=== PATIENT | male | born 1980 ===

== ENCOUNTER 2017-12-21 18:15 | Emergency (ER) | payer OTHER ==
[~2017-12-21] VITALS: Ht 172.7 cm; Wt 1098.1 kg
[~2017-12-21 18:15] MED LIST: AMOXICILLIN500 MG PO; BENADRYL50 MG PO; IMODIUM A-D2 MG PO; MEDROL4 MG PO; PREVACID30 MG PO
== END 2017-12-21 22:32 | disposition home or self-care (01) ==
LOC: ER 18:15
DX: K29.70 Gastritis, unspecified, without bleeding (principal)

== ENCOUNTER 2020-08-26 07:52 | Outpatient (CLI) | payer OTHER | END 2020-08-26 08:03 | disposition home or self-care (01) | LOC: TOM 07:52 | PROVIDERS: ATTEND Internal Medicine Gastroenterology | DX: R10.84 Generalized abdominal pain (principal) ==

== ENCOUNTER 2020-10-09 06:38 | Day surgery (SDC) | payer OTHER ==
[~2020-10-09 06:38] MED LIST changes: +METOLAZONE10 MG PO; +PANADOL EXTRA500 MG PO
== END 2020-10-09 16:00 | disposition home or self-care (01) ==
LOC: CIR.AMB 06:38
PROVIDERS: ATTEND Specialist
DX: C78.7 Secondary malignant neoplasm of liver and intrahepatic bile duct (principal); Z20.822 Contact with and (suspected) exposure to COVID-19
CPT/HCPCS: 36561; C1751

== ENCOUNTER 2020-10-27 07:49 | Emergency (ER) | payer OTHER ==
[~2020-10-27] VITALS: Ht 172.7 cm; Wt 104.3 kg
== END 2020-10-27 19:19 | disposition home or self-care (01) ==
LOC: ER 07:49
DX: K52.9 Noninfective gastroenteritis and colitis, unspecified (principal)

== ENCOUNTER 2020-10-31 13:24 | Inpatient (IN) | payer OTHER ==
[~2020-10-31] VITALS: Ht 172.7 cm; Wt 104.3 kg
[2020-10-31] MEDS ORDERED: ZOFRAN8 MG PO (13:49)
== END 2020-11-02 08:33 | disposition expired | DRG 862 ==
LOC: ER 13:24 → SURH 17:05 → SEC-K 17:05 → SURH 17:30
PROVIDERS: ADMIT Internal Medicine; ATTEND Internal Medicine
PROC: 3E0F7SF Introduction of Other Gas into Respiratory Tract, Via Natural or Artificial Opening (ICD-10-PCS; principal; 2020-11-01)
DX: T81.49XA Infection following a procedure, other surgical site, initial encounter (principal); A41.9 Sepsis, unspecified organism; G93.41 Metabolic encephalopathy; R65.21 Severe sepsis with septic shock; L03.311 Cellulitis of abdominal wall; N17.8 Other acute kidney failure; E87.2 Acidosis; C78.7 Secondary malignant neoplasm of liver and intrahepatic bile duct; D69.59 Other secondary thrombocytopenia; Z66 Do not resuscitate; Z20.822 Contact with and (suspected) exposure to COVID-19; D70.8 Other neutropenia; R50.81 Fever presenting with conditions classified elsewhere; I46.8 Cardiac arrest due to other underlying condition